=== PATIENT | male | born 2005 | race Hispanic/Latino ===

== ENCOUNTER 2024-08-07 19:33 | Observation (INO) | payer SELFPAY ==
[2024-08-07 19:36] VITALS: BP 106/68; PULSE 77; RESP 18; TEMP 36.1; O2SAT 99; BMI 19.7
[2024-08-07] MEDS: 0.9% Normal Saline (1000mL) 1,000 ML 999 ML IV (20:07)
[2024-08-07] MEDS: Ondansetron 4 MG/2 ML Vial IV (20:07)
[2024-08-07] MEDS: Famotidine 200 MG/20 ML MDV 20 MG in 0.9% Normal Saline (Pres. free 8 ML 300 MG IV (20:37)
[2024-08-07 20:39] LABS: Absolute Lymphocyte Count 1.38 X10^3/uL (0.83-4.51); Basophil# 0.05 X10^3/uL; Basophil% 0.3 % (0-1); Eosinophil# 0.01 X10^3/uL; Eosinophils% 0.1 % (0-5); Hematocrit 43.7 % (40-54); Hemoglobin 14.8 g/dL (13.0-16.5); Lymphocyte # 1.38 X10^3/ul (0.83-4.51); Lymphocyte % 7.3 % (19-41); Mean Corp Hgb Conc 33.9 g/dL (32-36); Mean Corpuscular Hgb 29.8 pg (27.0-32.0); Mean Corpuscular Volume 87.9 fL (80-94); Mean Platelet Vol. 10.9 fl (6.2-12.0); Monocyte# 1.23 X10^3/uL; Monocyte% 6.5 % (0-10); NRBC Flagged by Analyzer 0 % (0-5); Neutrophil # 16.02 X10^3/uL (2.7-7.7); Neutrophil % 85.3 % (47-70); Platelet Count 250 K/mm3 (150-450); RBC Distribution Width CV 12.9 % (11.6-14.6); RBC Distribution Width SD 41.5 fl (35.1-43.9); Red Blood Count 4.97 M/mm3 (4.6-6.2); White Blood Count 18.8 K/mm3 (4.4-11.0)
--- NOTE | 2024-08-07 20:52 | EDS_ITS ---
HPI <MISAEL Hernandez - Last Filed: 08/07/24 21:55> HPI - GI History of Present Illness Chief Complaint: Abd Pain Narrative Narrative: 19-year-old male speaks Kuwaiti with no past medical or surgical history presents with nausea and vomiting and epigastric pain that started this morning. States he has been vomiting and dry heaving all throughout the day. He had 1 episode of bright red blood tinged in the vomit but none since. He had a normal bowel movement this morning and denies diarrhea, melena or hematochezia. Normal urination. States he had similar symptoms a few years ago. He takes no medications. He last drink alcohol about a week ago. Denies drug use. PFSH <MISAEL Hernandez Last Filed: 08/07/24 21:55> PFSH Medical History no medical history Allergy/AdvReac Type Severity Reaction Status Date / Time No Known Allergies Allergy Verified 08/07/24 19:38 Family History no significant family his Surgical History no surgical history Social History (Updated 08/07/24 @ 19:59 by Amber Adams) household members: family Smoking Status: Never smoker ROS <MISAEL Hernandez - Last Filed: 08/07/24 21:55> ROS ED ROS Narrative Constitutional: Negative for fever, chills, malaise. CVS: Negative for chest pain. Respiratory: Negative for shortness of breath. GI: Positive for abdominal pain, nausea, vomiting. Negative for diarrhea, constipation, melena, hematochezia. : Negative for dysuria. EXAM <MISAEL Hernandez Last Filed: 08/07/24 21:55> Physical Exam Narrative Exam Narrative: CONST: Patient sitting in bed looks uncomfortable, dry heaving. EYES: Normal inspection. NECK: Normal inspection. RESP: No respiratory distress, CTAB. CVS: Regular rate and rhythm, no murmur, no gallop. ABD: Soft with epigastric tenderness, no guarding or rebound, nondistended, no hepatosplenomegaly. SKIN: Color normal, no rash, warm, dry, intact. EXTREMITIES: Normal appearance, no pedal edema. NEURO: Alert and answering questions appropriately. PSYCH: Normal affect. Const Vital Signs: 08/07/24 19:36 08/07/24 21:33 08/07/24 21:40 Temperature 97 F L 98.4 F 98.4 F Temperature Source Temporal Oral Pulse Rate 77 77 71 Respiratory Rate 18 18 18 Blood Pressure 106/68 123/64 H 123/64 H Blood Pressure Mean 80 83 83 Pulse Ox 99 100 98 Oxygen Delivery Method Room Air Room Air <Dr. Samson Hoover DO - Last Filed: 08/07/24 21:53> Physical Exam Const Vital Signs: 08/07/24 19:36 08/07/24 21:33 08/07/24 21:40 Temperature 97 F L 98.4 F 98.4 F Temperature Source Temporal Oral Pulse Rate 77 77 71 Respiratory Rate 18 18 18 Blood Pressure 106/68 123/64 H 123/64 H Blood Pressure Mean 80 83 83 Pulse Ox 99 100 98 Oxygen Delivery Method Room Air Room Air MDM <MISAEL Hernandez - Last Filed: 08/07/24 21:55> MDM MDM Narrative Medical decision making narrative: History gathered from: Patient and significant other using interpreter and translator Differential includes but not limited to GERD, PUD, cholecystitis, pancreatitis, appendicitis Consults: General surgery 19-year-old male presents with nausea vomiting and epigastric pain that started this morning. He had 1 episode of bright red blood streaked throughout his emesis. No chest pain or shortness of breath. He is dry heaving and appears uncomfortable but nontoxic. Vitals are stable. Normal cardiopulmonary exam. He has generalized abdominal tenderness but is maximal in the epigastric region. No peritoneal signs. WBC is 18.8. Normal hemoglobin of 14.8. Electrolytes are within normal limits, BUN 22, creatinine 0.9. Normal LFTs and lipase. He continued to be symptomatic after IV Zofran and Pepcid so was given morphine and Phenergan and I ordered a CT scan. CT shows acute appendicitis so I ordered Zofran and consulted general surgery. Dr. Clement is coming in to take him to the OR [facility]. Findings were explained to the patient and he was admitted. Lab Data Attestation: I reviewed the patient's lab results. Labs: Laboratory Results - last 24 hr 08/07/24 20:15 WBC 18.8 H RBC 4.97 Hgb 14.8 Hct 43.7 MCV 87.9 MCH 29.8 MCHC 33.9 RDW Std Deviation 41.5 RDW Coeff of Anoop 12.9 Plt Count 250 MPV 10.9 Immature Gran % (Auto) 0.500 Neut % (Auto) 85.3 H Lymph % (Auto) 7.3 L [place] % (Auto) 6.5 Eos % (Auto) 0.1 Baso % (Auto) 0.3 Absolute Neuts (auto) 16.0 H Absolute Lymphs (auto) 1.38 Nucleated RBC % 0 Sodium 141 Potassium 3.4 Chloride 106 Carbon Dioxide 21.3 Anion Gap 14 BUN 22 H Creatinine 0.90 Estim Creat Clear Calc 113.49 Est GFR (MDRD) Non-Af 125 BUN/Creatinine Ratio 24.3 H Glucose 145 H Calcium 9.4 Total Bilirubin 0.49 AST 25 ALT 16 Alkaline Phosphatase 73 Total Protein 7.5 Albumin 4.6 Globulin 2.9 Albumin/Globulin Ratio 1.6 Lipase 22 Radiography Diagnostic Testing: Clinical Impression(s) from Imaging Studies Abdomen/Pelvis CT 08/07/24 20:54 IMPRESSION: 1. Mucosal thickening in the appendix with surrounding inflammation. Appendix measures 1.0 cm in diameter. Findings are consistent with acute appendicitis. No rupture. 2. Hepatomegaly with fatty infiltration. 3. Umbilical hernia containing fat. Red Alert: Acute appendicitis The critical information above was relayed directly by me by telephone to Kirsten Cleaning on 08/07/2024 at 9:25 pm with readback verification. Reading Location: [facility] <Dr. Samson Hoover, DO - Last Filed: 08/07/24 21:53> MDM History & Record Review Discussion w/independent historian: Patient Lab Data Labs: Laboratory Results - last 24 hr 08/07/24 20:15 WBC 18.8 H RBC 4.97 Hgb 14.8 Hct 43.7 MCV 87.9 MCH 29.8 MCHC 33.9 RDW Std Deviation 41.5 RDW Coeff of Anoop 12.9 Plt Count 250 MPV 10.9 Immature Gran % (Auto) 0.500 Neut % (Auto) 85.3 H Lymph % (Auto) 7.3 L [place] % (Auto) 6.5 Eos % (Auto) 0.1 Baso % (Auto) 0.3 Absolute Neuts (auto) 16.0 H Absolute Lymphs (auto) 1.38 Nucleated RBC % 0 Sodium 141 Potassium 3.4 Chloride 106 Carbon Dioxide 21.3 Anion Gap 14 BUN 22 H Creatinine 0.90 Estim Creat Clear Calc 113.49 Est GFR (MDRD) Non-Af 125 BUN/Creatinine Ratio 24.3 H Glucose 145 H Calcium 9.4 Total Bilirubin 0.49 AST 25 ALT 16 Alkaline Phosphatase 73 Total Protein 7.5 Albumin 4.6 Globulin 2.9 Albumin/Globulin Ratio 1.6 Lipase 22 Radiography Diagnostic Testing: Clinical Impression(s) from Imaging Studies Abdomen/Pelvis CT 08/07/24 20:54 IMPRESSION: 1. Mucosal thickening in the appendix with surrounding inflammation. Appendix measures 1.0 cm in diameter. Findings are consistent with acute appendicitis. No rupture. 2. Hepatomegaly with fatty infiltration. 3. Umbilical hernia containing fat. Red Alert: Acute appendicitis The critical information above was relayed directly by me by telephone to Kirsten Cleaning on 08/07/2024 at 9:25 pm with readback verification. Reading Location: [facility] Management Discussion w/another healthcare provider: Roofer Metal (Dr. Clement) Treatment and Re-Evaluation :: I have personally performed a face to face assessment of the patient and have reviewed the ASHLEY Note. I performed a substantive portion of the visit including all aspects of the following. My burr findings include: History is 19-year-old male presenting to the emergency department with abdominal pain vomiting. No reported fevers. He is concerned because he saw bl ood in his vomit. He describes the pain to me as all over. Exam is patient is diffusely tender and does seem to have a degree of involuntary guarding. I do hear bowel sounds. Concern for increased pain in the right lower quadrant and suprapubic region. Medical Decison Making patient's white count is 18.8. CT is consistent with acute appendicitis. Case was discussed with the surgeon and plan is admission for operative management. Patient was given a dose of Zosyn. Use of third- republican translator interpreter was utilized in the care of this patient. Discharge Plan Dx/Rx/DC Orders Clinical Impression: Acute appendicitis Disposition Disposition: [facility]
--- NOTE | 2024-08-07 20:54 | CT_ITS ---
EXAM: CT Abdomen and Pelvis With Intravenous Contrast CLINICAL INDICATION: EPIGASTRIC PAIN TECHNIQUE: Axial computed tomography images of the abdomen and pelvis with intravenous contrast. This CT exam was performed using one or more of the following dose reduction techniques: automated exposure control, adjustment of the mA and/or kV according to patient size, and/or use of iterative reconstruction technique. COMPARISON: No relevant prior studies available. FINDINGS: LUNG BASES: Unremarkable. No mass. No consolidation. ABDOMEN: LIVER: Hepatomegaly with fatty infiltration. GALLBLADDER AND BILE DUCTS: Unremarkable. No calcified stones. No ductal dilation. PANCREAS: Unremarkable. No mass. No ductal dilation. SPLEEN: Unremarkable. No splenomegaly. ADRENALS: Unremarkable. No mass. KIDNEYS AND URETERS: Unremarkable. No solid mass. No hydronephrosis. STOMACH AND BOWEL: Unremarkable. No obstruction. No mucosal thickening. PELVIS: APPENDIX: Mucosal thickening in the appendix with surrounding inflammation. Appendix measures 1.0 cm in diameter. BLADDER: Unremarkable. No mass. REPRODUCTIVE: Unremarkable as visualized. ABDOMEN and PELVIS: INTRAPERITONEAL SPACE: Unremarkable. No free air. No significant fluid collection. BONES/JOINTS: No acute fracture. No dislocation. SOFT TISSUES: Umbilical hernia containing fat. VASCULATURE: Unremarkable. No abdominal aortic aneurysm. LYMPH NODES: Unremarkable. No enlarged lymph nodes. CT/Abdomen/Pelvis W IV Cont ONLY IMPRESSION: 1. Mucosal thickening in the appendix with surrounding inflammation. Appendix measures 1.0 cm in diameter. Findings are consistent with acute appendicitis. No rupture. 2. Hepatomegaly with fatty infiltration. 3. Umbilical hernia containing fat. Red Alert: Acute appendicitis The critical information above was relayed directly by me by telephone to Kirsten Sanderson on 08/07/2024 at 9:25 pm with readback verification. Reading Location: [facility]
[2024-08-07] MEDS: proMETHazine 25 MG/ML Syringe 12.5 MG IM (20:57)
[2024-08-07] MEDS: Morphine 4 MG/ML Syringe IV ×2 (20:57→21:50)
[2024-08-07 21:03] LABS: ALB/GLOB Ratio 1.6 RATIO (0.9-2.4); AST(SGOT) 25 U/L (<=37); Alanine Aminotransfer ALT/SGPT 16 U/L (<=46); Albumin, Serum 4.6 g/dL (3.5-5.0); Alkaline Phosphatase 73 U/L (40-129); Anion Gap 14 (5-15); BUN 22 mg/dL (4-19); BUN/Creat Ratio 24.3 RATIO (10-20); Calcium,Total 9.4 mg/dL (7.6-11.0); Carbon Dioxide 21.3 mmol/L (21.0-32.0); Chloride 106 mmol/L (98-108); EST Glomerular Filtration Rate 125 (>60); Estimated Creatinine Clearance 113.49 ml/min (50-250); Globulin 2.9 g/dL (2.2-4.2); Glucose 145 mg/dL (70-99); Lipase 22 U/L (13-75); Potassium 3.4 mmol/L (3.3-5.1); Protein, Total 7.5 g/dL (5.9-8.4); Sodium Level 141 mmol/L (133-145); Total Bilirubin 0.49 mg/dL (0.00-1.30)
[2024-08-07 21:33] VITALS: BP 123/64; PULSE 77; RESP 18; TEMP 36.9; O2SAT 100
--- NOTE | 2024-08-07 21:38 | HP.PCM.SX_ITS ---
HPI - General General Date of Admission: 08/07/24 HPI Narrative EUSEBIA DE JESUS, is a 19 M who presents due to abdominal pain nausea vomiting along with some blood in his vomit. Patient white blood, 18.8 CT of the pelvis showed acute appendicitis. Patient is Sinhala-speaking accompanied by his partner. History is obtained via tablet medical scribe. Patient states abdominal pain started about noon and had nausea and vomiting at 1:00 PM. Patient denies any previous surgeries or medical history. Patient did get Zosyn in the ER [facility] Medical History no medical history Allergy/AdvReac Type Severity Reaction Status Date / Time No Known Allergies Allergy Verified 08/07/24 19:38 Family History no significant family his Surgical History no surgical history Social History (Updated 08/07/24 @ 19:59 by Amber Adams) household members: family Smoking Status: Never smoker Vital Signs Vital Signs Vital Signs: 08/07/24 19:36 Temperature 97 F L Temperature Source Temporal Pulse Rate 77 Respiratory Rate 18 Blood Pressure 106/68 Blood Pressure Mean 80 Pulse Ox 99 Oxygen Delivery Method Room Air Weight Weight: 136 lb 3.931 oz Body Mass Index (BMI) 19.7 Physical Exam Const alert, oriented x3 and no apparent distress HEENT normocephalic and head/scalp atraumatic Resp normal respiratory effort Cardio regular rate GI soft to palpation; Negative for non-distended Palpation: tender other (Diffuse, mild, no peritoneal signs); Negative for guarding Extremity no clubbing, cyanosis or edema Neuro CN's II-XII intact bilaterally Psych mental status grossly normal Results Lab / Micro Data 08/07/24 20:15 08/07/24 20:15 Labs: Laboratory Results - last 24 hr 08/07/24 20:15: WBC 18.8 H, RBC 4.97, Hgb 14.8, Hct 43.7, MCV 87.9, MCH 29.8, MCHC 33.9, RDW Std Deviation 41.5, RDW Coeff of Anoop 12.9, Plt Count 250, MPV 10.9, Immature Gran % (Auto) 0.500, Neut % (Auto) 85.3 H, Lymph % (Auto) 7.3 L, [place] % (Auto) 6.5, Eos % (Auto) 0.1, Baso % (Auto) 0.3, Absolute Neuts (auto) 16.0 H, Absolute Lymphs (auto) 1.38, Nucleated RBC % 0, Sodium 141, Potassium 3.4, Chloride 106, Carbon Dioxide 21.3, Anion Gap 14, BUN 22 H, Creatinine 0.90, Estim Creat Clear Calc 113.49, Est GFR (MDRD) Non-Af 125, BUN/Creatinine Ratio 24.3 H, Glucose 145 H, Calcium 9.4, Total Bilirubin 0.49, AST 25, ALT 16, Alkaline Phosphatase 73, Total Protein 7.5, Albumin 4.6, Globulin 2.9, Albumin/Globulin Ratio 1.6, Lipase 22 Assessment & Plan Assessment/Plan (1) Acute appendicitis: PLAN: Plan 1. Discussed procedure laparoscopic appendectomy, possible open with the patient and his partner via the medical scribe tablet along with the risk but not limited to bleeding, infection/abscess, injury to another organ (small bowel, colon, etc.), adhesion, hernia at incision sites, and anesthesia. Patient and his partner had opportunity to ask questions had no further questions time. Isela Clement M.D. Pager: [phone] [facility] [address] [place] [address], [address] [place] [address] Office: [phone]
[2024-08-07 21:40] VITALS: BP 123/64; PULSE 71; RESP 18; TEMP 36.9; O2SAT 98
[2024-08-07 21:41] VITALS: BMI 19.7
[2024-08-07] MEDS: Piperacil/Tazobactam 3.375 GM in 0.9% Normal Saline (50mL MB+) 50 ML IV (21:50)
--- NOTE | 2024-08-07 22:50 | APP_PTH ---
PATIENT: EUSEBIA DE JESUS LOC: MS3 U#:[id number] AGE/SX: 19/M ROOM: WI305 RE08/07/[address]: Dr. Isela Clement MD : 2005 BED: 1 DIS: 08/08/2024 SPEC #: [id number] RECD: 08/10/24 06:05 STATUS: ARASH PRAVEENA #: [id number] FRENCH: 08/07/24 22:[address]: Isela Clement DEPT: SURGICAL PATHOLOGY RECD BY: Helio Wise ENTERED: 08/10/24 09:43 SP TYPE: APPENDIX OT DR: Daily Primary Care Phys Tissues: A - Appendix, NOS Procedures: Surgery Specimen Level III HEADER OPERATION: Laparoscopic appendectomy PRE-OP DIAGNOSIS: Acute appendicitis TISSUE SUBMITTED: A- Appendix MICROSCOPIC DIAGNOSIS A. Appendix, acute appendicitis, appendectomy: - Acute appendicitis, acute serositis. MICROSCOPIC DESCRIPTION Slides are reviewed. GROSS DESCRIPTION A. Received in formalin labeled with the patient's name and date of . Designated as appendix is an 8.3 x 0.7 cm song-pink to call and granular appendix with focal serosal adhesions and up to 2.2 cm of attached mesoappendix. The stapled margin is inked black and shaved. Sectioning reveals song, fibrotic and diffusely granular mucosa with congestion throughout. There is a 0.5 x <0.1 cm area of threadlike fibrosis spanning from the mucosa into the underlying mesoappendix, located approximately 0.5 cm from the distal tip, that is suspicious for a healed perforation. No gross full-thickness defect/perforation is observed. Steam Heating Installer sections are submitted in 1 cassette. ND 08/10/2024 CPT:92628
--- NOTE | 2024-08-07 22:52 | PRE.ANES_ITS ---
ASA Classification* ASA Classification ASA Classification: 2 and E Assessment & Plan Anesthesia* Anesthesia Assessment Anesthesia Assessment: Discussed sedation and/or anesthesia options, risks, benefits, and alternatives with patient/parents/legal guardian/POA. Questions invited. The patient/parents/legal guardian/POA seems to understand and agrees to proceed with anesthesia plan. Reviewed the physical assessment, medical history, allergy history and patient home medications list prior to surgery/procedure/anesthetic and documented any changes. Performed airway and anesthesia risk assessments. Anesthesia Type Anesthesia Type: General History Source History Obtained from:: Patient and Chart Anesthesia Focused Assessment* Temperature: 98.4 F Pulse Rate: 71 Blood Pressure: 123/64 Respiratory Rate: 18 Pulse Ox: 98 Oxygen Delivery Method: Room Air Airway Assessment Mouth opens: >3 cm Mallampati Score: III Teeth Condition: Intact Neck Range of motion (ROM): Full ROM Labs Anesthesia Preop lab: CBC WBC 18.8 K/mm3 (4.4-11.0) H 08/07/24 20: 5 RBC 4.97 M/mm3 (4.6-6.2) 08/07/24 20:08/07/24 Hgb 14.8 g/dL (13.0-16.5) 08/07/24 20:08/07/24 Hct 43.7 % (40-54) 08/07/24 20:08/07/24 Plt Count 250 K/mm3 (150-450) 08/07/24 20:15 08/07/24 CHEMISTRY Potassium 3.4 mmol/L (3.3-5.1) 08/07/24 20:08/07/24 Sodium 141 mmol/L (133-145) 08/07/24 20:08/07/24 BUN 22 mg/dL (4-19) H 08/07/24 20:08/07/24 Creatinine 0.90 mg/dL (0.70-1.20) 08/07/24 20:08/07/24 Glucose 145 mg/dL (70-99) H 08/07/24 20:08/07/24 COAG Pre-Assessment Diagnosis/Proposed Procedure Planned Operative Procedure(s): Laparoscopic appendectomy. Anesthesia History Anesthesia History - cardiothoracic anesthesia technician: Anesthesia History - cardiothoracic anesthesia technician Hx Hospitalization Any Problems With Anesthesia No 08/07/24 21:41 Cholinesterase deficiency You/Your Family Experience No 08/07/24 21:41 fever (hyperthermia) with Relationship Recent Exposure to Contagious Disease Does patient have nerve No 08/07/24 21:41 stimulator Patient instructed to have device shut off --Does patient have Pacemaker or ICD? When Was Last Pacemaker Check QUESTION #4 FULL TEXT: You/Your Family Experience fever (hyperthermia) with Anesthesia Last Oral Intake Last Oral intake: Last Oral Intake NPO since Meds taken in AM with sips of water? Meds patient instructed to take am of surgery Any additional information?: Yes NPO since: 13:00 PONV PONV - cardiothoracic anesthesia technician: PONV - cardiothoracic anesthesia technician Female HX of Motion Sickness HX of N/V After Surgery Non-Smoker Duration of Surgery greater than 60 minutes Number of Risk Factors PONV Score Height & Weight Height & Weight: Anesthesia: Height & Weight Height 5 ft 9.69 in 08/07/24 21:41 Weight: 61.8 kg 08/07/24 21:41 Body Mass Index (BMI) 19.7 08/07/24 21:41 Respiratory Assessment Respiratory Assessment - cardiothoracic anesthesia technician: Respiratory Tract Infection Hx - cardiothoracic anesthesia technician Hx Respiratory Tract Infection STOP Sleep Apnea STOP Sleep Apnea - cardiothoracic anesthesia technician: STOP Sleep Apnea - cardiothoracic anesthesia technician Hx Hypertension No 08/07/24 21:41 Hx Sleep Apnea No 08/07/24 21:41 CPAP BIPAP Do you snore loudly (louder No 08/07/24 21:41 than talking or can be heard Do you often feel tired/ No 08/07/24 21:41 fatigued/ sleepy during daytime? Has anyone observed you stop No 08/07/24 21:41 breathing during sleep? STOP Results Negative 08/07/24 21:41 QUESTION #5 FULL TEXT : Do you snore loudly (louder than talking or can be heard through closed doors)? Tobacco Use History Tobacco Use History - cardiothoracic anesthesia technician: Tobacco Use History - cardiothoracic anesthesia technician Tobacco Use Smoking Status Never smoker 08/07/24 20:05 Hx Tobacco Use Years Smoking Packs Smoked per Day Smoking Cessation Date was within the last 15 years Hx Smoking Cessation Date Hx Smoking Cessation Counseling Hematologic Medial History Hematologic Hx - cardiothoracic anesthesia technician: Hematologic Medical Hx - quality measurement specialist Hx of Blood Transfusion Hx of Transfusion in last 3 Months Date of Last Transfusion (if within last 3 months) Ever experience any problems with transfusion(s)? Specify any problems Hx of Preganancy in last 3 Months Nurse Filling Out Transfusion & Questions: Date: Time: Patient unable to answer at this time (ie. confused, unrespo /Reproduction History /Reproductive History - cardiothoracic anesthesia technician: /Reproductive Hx- cardiothoracic anesthesia technician Hx Now No 08/07/24 21:41 Gestational Age (in weeks): EDC: Hx Hx Para Hx Section SAB PFSH Medical History no medical history Allergy/AdvReac Type Severity Reaction Status Date / Time No Known Allergies Allergy Verified 08/07/24 19:38 Family History no significant family his Surgical History no surgical history Social History (Updated 08/07/24 @ 19:59 by Amber Adams) household members: family Smoking Status: Never smoker Review of Systems (Anesthesia) ROS Narrative System reviewed and no additional complaints, except as documented.
[2024-08-07 22:54] VITALS: BP 123/64; PULSE 71; RESP 18; TEMP 36.9; O2SAT 98
[2024-08-07] MEDS: Bupiv/Epi 0.25% 30 ML Vial (23:37)
--- NOTE | 2024-08-07 23:52 | OP.PCM_ITS ---
Operative Report (Standard) Operative Information Date of Procedure: 08/07/24 Pre-Operative Diagnosis: Acute appendicitis Post-Operative Diagnosis: Same Surgery/Procedure Performed: Laparoscopic appendectomy mulling machine operator: No Type of Anesthesia: General/Supplemental RN Documented Start/Stop Times: Operation Date: 08/07/24 22:50 Case Time Anesthesia Start 08/07/24 23:06 Into Room 08/07/24 23:06 Procedure Start 08/07/24 23:24 Procedure End 08/07/24 23:51 Anesthesia End 08/08/24 00:07 Out of Room 08/08/24 00:07 Into Recovery 08/08/24 00:10 Out of Recovery 08/08/24 00:36 Procedure Start Time: 23:42 Procedure Stop Time: 23:51 Select all DRAINS/GRAFTS/IMPLANTS that apply: None Special Medications: Zosyn in the ER for acute appendicitis Estimated Blood Loss: < 10 cc Specimen collected: Yes Description of specimen(s) removed: Appendix Description of surgery: Indications: 19-year-old male presented to the ER with new right lower quadrant pain at noon. On workup he was found to have acute appendicitis on CT and a leukocytosis of 18.8. Patient was started on antibiotics in the ER for acute appendicitis-Zosyn IV Description of the procedure: The patient was placed on operating table in supine position. General anesthesia was induced. A timeout was completed verifying correct patient, procedure, position and special equipment prior to beginning procedure. Abdomen was prepped and draped in usual sterile fashion. Incision was made in the natural skin line above the umbilicus with a 15 blade scalpel. The fascia was elevated and incised. Entry into the peritoneum was confirmed visually and no bowel was noted in the vicinity of the incision. The Rhodes trocar was placed under direct vision. Abdomen insufflated with a pressure of 12-15 mmHg. Patient tolerated insertion well. The scope was inserted and the abdomen inspected. No injuries from initial trocar placement were noted. Minimal amount of fluid was seen in the right lower quadrant. An direct visualization 2 -5 mm trocars were placed one above the symphysis pubis and below the hairline and one in the left lower quadrant lateral to the rectus muscle. Care is taken to avoid injury to the bladder and inferior epigastric vessels. The table was placed in Trendelenburg position with the right side elevated. The appendix was grasped with atraumatic grasper and elevated. It was noted to be inflamed. A window was developed in the mesoappendix at the point between the base of the appendix and the cecum. An endoscopic 45 mm linear cutting stapler blue load was then used to divide and staple the base of the appendix. Enseal was used to divide the mesoappendix The appendix was withdrawn into the Rhodes trocar after being placed endoscopically retrieval bag. Appendix was sent to pathology. The appendiceal stump was then irrigated and hemostasis was assured. Fluid was suctioned no other pathology was identified. Secondary trochars were removed under direct visualization. No bleeding was noted trocar sites. The laparoscope withdrawn and the umbilical trocar removed. The abdomen was allowed to collapse. Local anesthesia of 30 mL of 0.25% Marcaine was used at the incision sites. The umbilical trocar site was closed with the [id number] 0 Vicryl suture. The skin was closed using sutures of 4-0 Monocryl and Steri-Strips. The patient was extubated. The patient tolerated the procedure well and was taken to the postanesthesia care unit in satisfactory condition. Surgical Findings: See operative report Complications Complications: No
--- NOTE | 2024-08-07 23:53 | DCINST_ITS ---
Discharge Instructions Diet Discharge Diet: Light diet - advance as tolerated Activity Discharge Activity: May Not Drive (while taking narcotic pain medications.) May shower in (days): 1 Lifting Restrictions: no lifting >20 lbs x 2 wks, no strenuous exercise for 4 wks Dressing / Incision Call your doctor if your incision/area has: Continuous Slow Oozing, Sudden Increased Bleeding, Increased Pain/ Swelling, Increased Redness, Foul Smelling Discharge and Swelling at the incision site Call your doctor if you observe: Fever of 101 or Higher Remove Dressing in: 2 days Cleanse incision/area with: Soap & Water Additional Dressing/Incision Instructions:: Steri-Strips will fall off in 7 to 10 days, if they do not fall off okay to remove after 10 days. Follow Up Care Please Follow Up With: Isela Clement MD When: Call the office for a follow-up appointment 2 weeks; after 5 PM and on the weekends call [phone] with any concerns. Test Results: Test results from this visit will be discussed in further detail at your follow- up appointment, if applicable. Discharge Plan Admission Admit Date/Time: 08/07/24 22:30 Attending Provider: Isela Clement Primary Care Provider: Kyra Physician,Daily Primary Discharge Orders/Prescriptions Prescriptions: New oxycodone 5 mg capsule 5 mg PO Q6H PRN (Reason: pain) 3 Days Qty: 10 0RF Referrals / Follow Up: Care PhysicianDaily Primary [Primary Care Provider] - Disposition Disposition (needs filled in before D/C Order can be placed): Home, Self Care
[2024-08-08] VITALS (9 sets, daily range): BP systolic 105–130; BP diastolic 56–70; PULSE 86–97; RESP 16–18; TEMP 36.2–37; O2SAT 95–99; BMI 19.7
--- NOTE | 2024-08-08 00:11 | PCM.POST.ANE ---
Anesthesia: Postop Eval I Current Vital Signs Temperature: 97.1 F Pulse Rate: 97 Blood Pressure: 130/70 Respiratory Rate: 16 Pulse Ox: 98 Oxygen Delivery Method: Room Air Assessment Airway patent: Yes Spontaneous unlabored respirations: Yes Mental status: Asleep nausea: No Vomiting: No Anesthesia Complication: No Fluid Hydration Crystalloid volume administer (ml): 500 Total IV fluid infused: 500 Progress Note Anesthesia document: Postop Eval 1 completed: Yes
--- NOTE | 2024-08-08 00:28 | PCM.POSTANE2 ---
Anesthesia Postop Eval I Sum Postop Eval Completion status Anesthesia document: Postop Eval 1 completed: Yes Anesthesia Postop Eval I Summary Anesthesia Postop Eval I Summary: Anesthesia Postop Eval I: Assessment Summary Airway patent Yes 08/08/24 00:13 Spontaneous unlabored Yes 08/08/24 00:13 respirations Mental status Asleep 08/08/24 00:13 nausea No 08/08/24 00:13 Vomiting No 08/08/24 00:13 Anesthesia Postop Eval I: Fluid Summary Crystalloid volume administer 500 08/08/24 00:13 (ml) Colloids volume administered ( ml) Blood Product volume administered (ml) Total IV fluid infused 500 08/08/24 00:15 Anesthesia Postop Eval I: Summary Notes Anesthesia Complication No 08/08/24 00:13 Anesthesia Complication Comment: Post-operative progress note Anesthesia: Postop Eval II Evaluation Mental status: Awake and Calm Pain Level: 2 nausea: No Vomiting: No Complications Anesthesia Complication: No
[2024-08-08] MEDS: 0.9% Normal Saline (1000mL) 1,000 ML 120 ML IV ×2 (01:08→09:01)
[2024-08-08] MEDS: Acetaminophen 325 MG Tablet 650 MG PO (04:20)
[2024-08-08] MEDS: oxyCODONE 5 MG Tablet PO (04:20)
[2024-08-08] MEDS: Piperacil/Tazobactam 3.375 GM in 0.9% Normal Saline (50mL MB+) 50 ML IV (06:09)
--- NOTE | 2024-08-08 08:45 | CASEMGMT ---
Patient is listed as being self pay. SW met with patient and his friend. Introduced self and role at [facility] using work order detailer. SW also provided patient with community resources all in [place]. Yanna CONTRERAS
--- NOTE | 2024-08-08 09:37 | PCM.PN.SRG ---
Subjective Subjective Patient tolerating diet, pain controlled Objective Data Objective Data Vital Signs: Vital Signs Temp Pulse Resp BP Pulse Ox O2 Del Method 98 F 90 16 109/56 L 99 Room Air 08/08/24 09:33 08/08/24 09:33 08/08/24 09:33 08/08/24 09:33 08/08/24 09:33 08/08/24 09:33 Oxygen Delivery Method Room Air Weight: 136 lb 7.458 oz Body Mass Index (BMI) 19.7 Intake & Output: Intake and Output for Last 24 Hours 08/06/24 08/07/24 08/08/24 23:59 23:59 23:59 Intake Total 1060 / 1060 946 / 946 Output Total Balance 1050 / 1050 946 / 946 Lab / Micro Data 08/07/24 20:15 08/07/24 20:15 Labs: Laboratory Results - last 24 hr 08/07/24 20:15: WBC 18.8 H, RBC 4.97, Hgb 14.8, Hct 43.7, MCV 87.9, MCH 29.8, MCHC 33.9, RDW Std Deviation 41.5, RDW Coeff of Anoop 12.9, Plt Count 250, MPV 10.9, Immature Gran % (Auto) 0.500, Neut % (Auto) 85.3 H, Lymph % (Auto) 7.3 L, Weld % (Auto) 6.5, Eos % (Auto) 0.1, Baso % (Auto) 0.3, Absolute Neuts (auto) 16.0 H, Absolute Lymphs (auto) 1.38, Nucleated RBC % 0, Sodium 141, Potassium 3.4, Chloride 106, Carbon Dioxide 21.3, Anion Gap 14, BUN 22 H, Creatinine 0.90, Estim Creat Clear Calc 113.49, Est GFR (MDRD) Non-Af 125, BUN/Creatinine Ratio 24.3 H, Glucose 145 H, Calcium 9.4, Total Bilirubin 0.49, AST 25, ALT 16, Alkaline Phosphatase 73, Total Protein 7.5, Albumin 4.6, Globulin 2.9, Albumin/Globulin Ratio 1.6, Lipase 22 Radiography Diagnostic Testing: Radiology Impression Abdomen/Pelvis CT 08/07/24 20:54 IMPRESSION: 1. Mucosal thickening in the appendix with surrounding inflammation. Appendix measures 1.0 cm in diameter. Findings are consistent with acute appendicitis. No rupture. 2. Hepatomegaly with fatty infiltration. 3. Umbilical hernia containing fat. Red Alert: Acute appendicitis The critical information above was relayed directly by me by telephone to Kirsten Cleaning on 08/07/2024 at 9:25 pm with readback verification. Reading Location: [facility] Physical Exam Const oriented x3 and no apparent distress Resp normal respiratory effort Cardio regular rate GI soft to palpation GI Narrative: Appropriately tender near incisions, incisions clean dry and intact Assessment & Plan Assessment/Plan (1) S/P laparoscopic appendectomy: PLAN: Plan Patient tolerating diet, pain controlled, okay to DC home. Isela Clement M.D. Pager: [phone] [facility] [address] [place] [address], [address] [place] [address] Office: [phone]
== END 2024-08-08 11:38 | disposition home or self-care (01) ==
LOC: ED 21:44 → MS3 22:05
PROVIDERS: Physician Assistant; Admitting Provider Surgery; Emergency Provider Emergency Medicine; Visit Provider Surgery
PROC: 0DTJ4ZZ Resection of Appendix, Percutaneous Endoscopic Approach (ICD-10-PCS; CPT 44970; principal; 2024-08-07 22:30)
DX: K35.80 Unspecified acute appendicitis (principal)
CPT/HCPCS: 44970; 00840; 74177; 80053; 83690; 85025; 88304; 96361; 96365; 96366; 96367; 96372; 96375; 99221; 99284; Q9967; A4216; G0378; J2405